=== PATIENT | male | born 1950 | race Caucasian/White ===

== ENCOUNTER → 2018-06-21 08:57 | Outpatient (CLI) | payer MEDICARE, OTHER | END | disposition home or self-care (01) | LOC: D.HCCARDIO 08:57 | DX: R55 Syncope and collapse (principal) ==

== ENCOUNTER 2018-07-04 06:01 | Outpatient (CLI) | payer MEDICARE, OTHER ==
[~2018-07-04] VITALS: Ht 172.7 cm; Wt 87.3 kg
--- NOTE | ~2018-07-04 | HEMODYNAMI ---
PATIENT:PARRISH SELBY MEDICAL RECORD: [id number] : 48 LOCATION:[facility] ADMISSION DATE: 07/04/18 Generatedon:07/04/20187:46 Patient name: PARRISH SELBY Patient #: [id number] SSN: : 1950 Date of study: 07/04/2018 Page: Of Hemodynamic Procedure Report Patient Data Patient Demographics First Name: PARRISH Gender: Male Last Name: BAL : 1950 Middle Initial: A Age: 68 year(s) Patient #: [id number] Race: Unknown Additional ID: [id number] Contact details Address: [address] [place] [address] State: [place] City: [place] Zip code: [address] Past Medical History Allergies: No known allergies Admission Admission Data Admission Date: 07/04/2018 Admission Time: 6:01 Procedure Procedure Types Cath Procedure Diagnostic Procedure LHC LHC w/Coronaries Procedure Description Procedure Date Procedure Date: 07/04/2018 Procedure Start Time: 7:32 Procedure End Time: 7:46 Procedure Staff Name Function Maninder Petty MD Performing Physician Laure Baig RT Monitor Sofie Young RN Nurse Denzel Gabriel RT Scrub Procedure Data Cath Procedure Fluoroscopy Diagnostic fluoroscopy Total fluoroscopy Time: 2.9 time: 2.9 min min Diagnostic fluoroscopy Total fluoroscopy dose: 846 dose: 846 mGy mGy Contrast Material Contrast Material Type Amount (ml) Isovue 300 63 Entry Location Entry Primary Successful Side Size Upsize Upsize Entry Closure Franco ccessful Closure Location (Fr) 1 (Fr) 2 (Fr) Remarks Device Remarks Radial Right 6 Fr Mechanical artery Short Compression Estimated blood loss: 5 ml Diagnostic catheters Device Type Used For End Catheter Placement DIAGNOSTIC Husam 110cm LV Angiography 5Fr catheter ([id number]) DIAGNOSTIC AR1 MOD 5Fr Right Coronary catheter ([id number]) Angiography Procedure Complications No complications Procedure Medications Medication Administration Route Dosage 0.9% NaCl I.V. 100 ml/hr Oxygen etCO2 Nasal cannula 2 l/min Lidocaine 2% added to field 20 Heparin Flush Bag added to field 2 bags (1000units/500ml NS) Radial Cocktail added to field 1 syringe (Verapomil 2mg/Nitro 400mcg/Heparin 1500units) Versed I.V. 2 mg Fentanyl I.V. 50 mcg Versed I.V. 1 mg Fentanyl I.V. 25 mcg Versed I.V. 2 mg Fentanyl I.V. 25 mcg Hemodynamics Rest Heart Rate: 75 (bpm) Pressure Samples Time Site Value (mmHg) Purpose Heart Use Rate(bpm) 7:35 LV 135/-3,15 EDP 74 7:35 AO 124/54(83) Pullback 77 7:35 LV 123/-8,10 Pullback 77 Gradients Valve Time Site 1 Site 2 Mean SEP/DFP Peak To Heart Use (mmHg) (sec/min) Peak Rate (mmHg) (bpm) Aortic 7:35 LV AO 0 6 0 77 123/-8,10 124/54(83) Calculations Valve P-P Mean Valve Index Valve Source Name Gradient Area Flow (cm2) Aortic 0 0 0 0 Snapshots Pre Cath Intra NCS Post Cath Vital Signs Time Heart Resp SPO2 etCO2 NIBP (mmHg) Rhythm Pain Sedation Rate (ipm) (%) (mmHg) Status Level (bpm) 7:18:02 73 13 98 31.2 162/96(138) NSR 0 (11) 10(A) , No pain 7:22:30 75 12 100 35 158/92(141) NSR 0 (11) 10(A) , No pain 7:26:53 72 12 96 20.1 137/88(115) NSR 0 (11) 10(A) , No pain 7:31:13 74 13 97 34.2 132/81(115) NSR 0 (11) 10(A) , No pain 7:35:22 77 13 96 38 95/67(89) NSR 0 (11) 10(A) , No pain 7:39:32 76 12 97 39.5 113/69(96) NSR 0 (11) 9(A) , No pain 7:43:50 78 14 96 42.5 119/69(103) NSR 0 (11) 10(A) , No pain Medications Time Medication Route Dose Verified Delivered Reason Notes Ef fectiveness by by 7:21:35 0.9% NaCl I.V. 100 Maninder Sofie used for ml/hr Jovanny Young labels molder 7:21:43 Oxygen etCO2 2 l/min Maninder Osfie used for Nasal Jovanny Young procedure cannula RN 7:21:49 Lidocaine 2% added 20ml Maninder Maninder for local to vial Jovanny Petty MD anesthetic field 7:21:56 Heparin Flush added 2 bags Maninder Maninder used for Bag to Jovanny Petty MD procedure (1000units/500ml field NS) 7:22:02 Radial Cocktail added 1 Maninder Maninder used for (Verapomil to syringe Jovanny Petty MD procedure 2mg/Nitro field 400mcg/Heparin 1500units) 7:29:00 Versed I.V. 2 mg Maninder Sofie for Jovanny Young sedation RN 7:29:06 Fentanyl I.V. 50 mcg Maninder Sofie for Jovanny Young sedation RN 7:37:09 Versed I.V. 1 mg Maninder Sofie for Jovanny Young sedation RN 7:37:13 Fentanyl I.V. 25 mcg Maninder Sofie for Jovanny Young sedation RN 7:42:16 Versed I.V. 2 mg Maninder Sofie for Jovanny Young sedation RN 7:42:20 Fentanyl I.V. 25 mcg Maninder Sofie for Jovanny Young sedation knot picker cloth Log Time Note 6:56:35 Time tracking: Regular hours (M-F 7:00 - 5:00) 6:56:39 Plan of Care:Hemodynamics will remain stable., Cardiac rhythm will remain stable., Comfort level will be maintained., Respiratory function will remain adequate., Patient/ family verbilizes understanding of procedure., Procedure tolerated without complication., Recovers from procedure without complications.. 7:08:21 Sofie Young RN sent for patient. Start room use. 7:09:42 Patient received from Pre/Post Procedure Room to CCL 1 Alert and oriented. Tansferred to table in Supine position. 7:09:43 Warm blankets applied, and nicholas hugger turned on for patient comfort. 7:09:44 Correct patient and procedure confirmed by team. 7:09:45 ECG and BP/O2 sat monitors applied to patient. 7:09:46 Full Disclosure recording started 7:16:39 Vital chart was started 7:21:35 0.9% NaCl 100 ml/hr I.V. was administered by Sofie Young RN; used for procedure; 7:21:43 Oxygen 2 l/min etCO2 Nasal cannula was administered by Sofie Young RN; used for procedure; 7:21:49 Lidocaine 2% 20ml vial added to field was administered by Maninder Petty MD; for local anesthetic; 7:21:56 Heparin Flush Bag (1000units/500ml NS) 2 bags added to field was administered by Maninder Petty MD; used for procedure; 7:22:02 Radial Cocktail (Verapomil 2mg/Nitro 400mcg/Heparin 1500units) 1 syringe added to field was administered by Maninder Petty MD; used for procedure; 7:22:45 Baseline sample Acquired. 7:22:48 Rhythm: sinus rhythm 7:22:55 H&P Date Dictated: 07/04/2018 New H&P dictated by physician.. 7:22:56 Pre-procedure instructions explained to patient. 7:22:56 Pre-op teaching completed and patient verbalized understanding. 7:22:58 Family in waiting room. 7:23:00 Patient NPO since Midnight. 7:23:09 Patient allergic to No known allergies 7:23:11 Is the patient allergic to Iodine/contrast media? No. 7:23:13 Is patient on blood thinner?No 7:23:14 Patient diabetic? Yes. 7:23:15 If diabetic: On Metformin? Yes 7:23:18 If on Metformin: Last Dose? 07/02/2018 7:23:23 Previous problem with sedation/anesthesia? No ? 7:23:24 Snore? Yes 7:23:25 Sleep apnea? No 7:23:26 Deviated septum? No 7:23:27 Opens mouth fully? Yes 7:23:27 Sticks out tongue? Yes 7:23:30 Airway obstruction? No ? 7:23:31 Dentures? No ? 7:23:35 Pre procedure: right dorsailis pedis pulse 2+ Normal; easily identifiable; not easily obliterated 7:23:37 Modified Michael's test Ulnar < 7 seconds 7:23:40 Patient pain scale 0/10 ?. 7:23:43 IV patent on arrival in left forearm with 0.9% NaCl at [facility]. 7:23:46 Lab results completed and on chart. 7:23:50 Right Radial & Right Groin area was prepped with chlora-prep and draped in sterile fashion 7:23:50 Alarms reviewed by R. N. 7:23:51 Sharps counted by scrub and verified by R.N. 7:23:53 Use device set Radial Dx or PCI 7:23:54 ACIST Syringe (10284) opened to sterile field. 7:23:54 Medline Cath Pack ([id number]) opened to sterile field. 7:23:55 Bag Decanter (2002S) opened to sterile field. 7:23:55 DIAGNOSTIC WIRE .035 260cm J wire (217783) opened to sterile field. 7:23:55 ACIST Hand Control (77784) opened to sterile field. 7:23:56 ACIST Manifold (54887) opened to sterile field. 7:23:58 MBrace Wrist Support ([id number]) opened to sterile field. 7:23:58 SHEATH 6FR Slender (80-7590) opened to sterile field. 7:24:01 NEEDLE Cook 21G 4cm Radial ([id number]) opened to sterile field. 7:26:01 Final Timeout: patient, procedure, and site verified with staff and physician. All members of the team are in agreement. 7:26:04 Right Radial site verified by team. 7:26:06 Physical assessment completed. ASA score P 2 - A patient with mild systemic disease as per Maninder Petty MD. 7:26:09 Sedation plan: IV Moderate Sedation Medication:Versed, Fentanyl 7:27:20 Zero performed for pressure channel P1 7:29:00 Versed 2 mg I.V. was administered by Sofie Young RN; for sedation; 7:29:06 Fentanyl 50 mcg I.V. was administered by Sofie Young RN; for sedation; 7:30:39 Zero performed for pressure channel P1 7:32:23 Procedure started. 7:32:28 Local anesthetic to right radial artery with Lidocaine 2% by Maninder Petty MD.INITIAL ACCESS ONLY 7:33:33 A 6 Fr Short sheath was inserted into the Right Radial artery 7:34:31 A DIAGNOSTIC Husam 110cm 5Fr catheter ([id number]) was advanced over the wire and used for LV Angiography. 7:35:14 LV gram done using ODOM 7:35:18 Injector settings: Ml/sec: 5, Volume: 15, 7:35:25 EF : 55 % 7:35:26 LV hemodynamics recorded. 7:37:09 Versed 1 mg I.V. was administered by Sofie Young RN; for sedation; 7:37:13 Fentanyl 25 mcg I.V. was administered by Sofie Young RN; for sedation; 7:40:07 Catheter removed. 7:40:29 A DIAGNOSTIC AR1 MOD 5Fr catheter ([id number]) was advanced over the wire and used for Right Coronary Angiography. 7:42:10 Catheter removed. 7:42:16 Versed 2 mg I.V. was administered by Sofie Young RN; for sedation; 7:42:20 Fentanyl 25 mcg I.V. was administered by Sofie Young RN; for sedation; 7:42:44 Sheath removed intact; hemostasis achieved with Mechanical Compression to the Right Radial artery. 7:42:46 Procedure ended.(Physican Out) 7:43:15 Fluoroscopy time 02.90 minutes. 7:43:18 Fluoroscopy dose: 846 mGy 7:43:18 Flurop Dose total: 846 7:43:22 Contrast amount:Isovue 300 63ml. 7:43:25 Sharps counted by scrub and verified by R.N. 7:43:27 TR band inflated with 12cc of air. 7:43:28 Insertion/operative site no bleeding no hematoma. 7:43:37 Post right radial artery:stable, clean and dry 7:43:39 Post Procedure Pulses reassessed and unchanged 7:43:42 Post-procedure physical assessment completed. ASA score P 2 - A patient with mild systemic disease as per Maninder Petty MD. 7:43:44 Post procedure rhythm: unchanged. 7:43:47 Estimated blood loss: 5 ml 7:43:48 Post procedure instruction explained to patient.Patient verbalizes understanding. 7:43:49 Patient needs reinforcement of post procedure teaching. 7:44:33 Procedure Complication : No complications 7:45:19 See physician's report for complete and final results. 7:45:31 TR BAND Standard ([id number]) opened to sterile field. 7:45:50 Procedure and supply charges have been captured, reviewed, submitted and are correct. 7:46:23 Vital chart was stopped 7:46:25 Report given to Pre/Post Procedure Room. 7:46:28 Patient transfered to Pre/Post Procedure Room with Stretcher. 7:46:35 Procedure ended. 7:46:35 Full Disclosure recording stopped 7:46:40 End room use (Document Last) Device Usage Item Name Manufacture Quantity Catalog Hospital Part Current Minimal Lot# / Number Charge Number Stock Stock Serial# Code ACIST Acist 1 32358 414975 136583 794540 20 Syringe Medical (97456) Systems Inc Medline Medline 1 [id number] 806179 31051 854966 5 Cath Pack ([id number]) Bag Microtek 1 2001S 636356 67034 891415 5 Decanter Medical Inc. () DIAGNOSTIC St Kaden 1 775383 029482 174049 764063 30 WIRE .035 260cm J wire (338277) ACIST Hand Acist 1 99790 057679 570125 743323 5 Control Medical (37389) Systems Inc ACIST Acist 1 68236 292889 709698 712071 5 Manifold Medical (19109) Systems Inc MBrace Advanced 1 140-0250-00 841981 40870 612928 5 Wrist Vascular Support Dynamics ([id number]) SHEATH 6FR Terumo 1 [id number] 812660 697274 144201 5 Slender (80-1060) NEEDLE Cook [employer]brook Medical 1 [id number] 330714 536855 592405 5 21G 4cm Radial (T33488) DIAGNOSTIC Terumo 1 40-5023 519257 979312 437753 5 Husam 110cm 5Fr catheter (023700) DIAGNOSTIC Cardinal 1 [id number] 271790 372563 772102 15 AR1 MOD 5Fr Health catheter (500241U) TR BAND Terumo 1 [id number] 672739 441237 220456 40 Standard ([id number]) Signature Audit Boaz Stage Time Signature Unsigned Intra-Procedure 07/04/2018 Laure 7:46:51 AM Counts RT(R) Signatures Monitor : Laure Signature : Counts RT Date : Time : [facility] [address] [place] [address]
[2018-07-04] MEDS ORDERED: BYDUREON P2 MG/0.65 SC (06:30)
[2018-07-04] MEDS ORDERED: LISINOPRIL10 MG PO (06:31)
[2018-07-04] MEDS ORDERED: LOVASTATIN40 MG PO (06:31)
[2018-07-04] MEDS ORDERED: PEPCID AC20 MG PO (06:31)
[2018-07-04] MEDS ORDERED: GLUCOPHAGE850 MG PO (06:32)
[2018-07-04] MEDS ORDERED: LOPRESSOR25 MG PO (06:32)
[2018-07-04] MEDS ORDERED: TRAZODONE HCL100 MG PO (06:32)
[2018-07-04] MEDS ORDERED: GLUCOTROL XL 5 M5 MG PO (06:32)
[2018-07-04 06:47] VITALS: BP 158/91; Ht 172.7 cm; Wt 87.3 kg
[2018-07-04 07:06] LABS: CALC OSMOLALITY 288 mosm/kg (275-300); CARBON DIOXIDE 29.2 mmol/L (21.0-32.0); CHLORIDE - SERUM 105 mmol/L (98-107); GLUCOSE 227 mg/dL (74-106); POTASSIUM - SERUM 4.7 mmol/L (3.5-5.1); SODIUM 141 mmol/L (136-145); UREA NITROGEN 14 mg/dL (7-18); eGFR NON AFRICAN AMERICAN 79 mL/min (90-120)
[2018-07-04 07:39] LABS: BASOPHILS 0.5 % (0-2); EOSINOPHILS 2.3 % (0-7); HEMATOCRIT 39.4 % (42.0-54.0); HEMOGLOBIN 12.9 g/dL (13.5-17.5); IMMATURE GRANULOCYTES 0.3 % (0-5); MCH 27.2 pg (26.0-34.0); MCHC 32.7 g/dL (31.0-37.0); MCV 82.9 fL (80.0-100.0); MEAN PLATELET VOLUME 9.5 fL (7.4-10.4); MONOCYTES 12.2 % (2-11); NEUTROPHILS 61.7 % (40-80); PLATELET COUNT 265 10x3/uL (130-400); RBC 4.75 10x6/uL (4.20-6.10); RDW 14.9 % (11.5-14.5); WBC 6.5 10x3/uL (4.8-10.8)
== END 2018-07-04 10:35 | disposition home or self-care (01) ==
LOC: D.CATH 06:01
PROVIDERS: Internal Medicine Cardiovascular Disease
DX: I25.10 Atherosclerotic heart disease of native coronary artery without angina pectoris (principal); I10 Essential (primary) hypertension; E78.5 Hyperlipidemia, unspecified; E11.9 Type 2 diabetes mellitus without complications; K21.9 Gastro-esophageal reflux disease without esophagitis; Z79.84 Long term (current) use of oral hypoglycemic drugs; Z79.899 Other long term (current) drug therapy; Z01.812 Encounter for preprocedural laboratory examination

== ENCOUNTER 2018-07-26 09:30 | Inpatient (IN) | payer MEDICARE, OTHER ==
[~2018-07-26] VITALS: Ht 172.7 cm; Wt 91.6 kg
[~2018-07-26 09:30] MED LIST: BYDUREON P2 MG/0.65 SC; GLUCOPHAGE850 MG PO; GLUCOTROL XL 5 M5 MG PO; LISINOPRIL10 MG PO; LOPRESSOR25 MG PO; LOVASTATIN40 MG PO; PEPCID AC20 MG PO; TRAZODONE HCL100 MG PO
[2018-07-26 10:41] LABS: APTT 34.7 SECONDS (22.8-39.4); INR 0.97 (0.85-1.17); PROTIME 12.4 SECONDS (11.6-15.0)
[2018-07-26 10:43] LABS: APPEARANCE HAZY (CLEAR); BILIRUBIN NEGATIVE (NEGATIVE); COLOR YELLOW (YELLOW); GLUCOSE 1000 mg/dL (NEGATIVE); KETONE SMALL mg/dL (NEGATIVE); NITRITE NEGATIVE (NEGATIVE); PROTEIN NEGATIVE (NEGATIVE); SPECIFIC GRAVITY 1.015 (1.005-1.020); UROBILINOGEN NORMAL (NORMAL)
[2018-07-26 10:56] LABS: ALBUMIN 3.6 g/dL (3.4-5.0); ALKALINE PHOSPHATASE 61 U/L (46-116); ALT (SGPT) 32 U/L (10-68); BILIRUBIN - TOTAL 0.31 mg/dL (0.2-1.3); CALC OSMOLALITY 284 mosm/kg (275-300); CALCIUM 8.7 mg/dL (8.5-10.1); CARBON DIOXIDE 30.5 mmol/L (21.0-32.0); CHLORIDE - SERUM 103 mmol/L (98-107); CHOLESTEROL, TOTAL 130 mg/dL (0-200); GLUCOSE 204 mg/dL (74-106); PHOSPHOROUS 3.2 mg/dL (2.5-4.9); POTASSIUM - SERUM 4.6 mmol/L (3.5-5.1); PROTEIN - SERUM 7.4 g/dL (6.4-8.2); SODIUM 140 mmol/L (136-145); T4 THYROXIN - FREE 0.94 ng/dL (0.76-1.46); THYROID STIMULATING HORMONE 0.96 uIU/mL (0.36-3.74); UREA NITROGEN 13 mg/dL (7-18); URIC ACID 3.3 mg/dL (2.6-7.2); eGFR NON AFRICAN AMERICAN 79 mL/min (90-120)
[2018-07-26 10:59] LABS: BASOPHILS 0.4 % (0-2); HEMATOCRIT 40.8 % (42.0-54.0); HEMOGLOBIN 13.3 g/dL (13.5-17.5); IMMATURE GRANULOCYTES 0.1 % (0-5); LYMPHOCYTES 24.8 % (15-50); MCH 27.1 pg (26.0-34.0); MCHC 32.6 g/dL (31.0-37.0); MCV 83.1 fL (80.0-100.0); MEAN PLATELET VOLUME 9.6 fL (7.4-10.4); MONOCYTES 8.5 % (2-11); NEUTROPHILS 64.2 % (40-80); PLATELET COUNT 270 10x3/uL (130-400); RBC 4.91 10x6/uL (4.20-6.10); RDW 15.3 % (11.5-14.5); WBC 8.2 10x3/uL (4.8-10.8)
[2018-07-30] VITALS (48 sets, daily range): BP systolic 94–163; BP diastolic 41–85; BMI 29.2; BMI 32.3
--- NOTE | 2018-07-30 13:35 | NUR ---
PT ARRIVED IN THE UNIT. PT SEDATED AND ON THE VENTILATOR. SIZE 8.0 ETT 24 AT THE LIP. SEE VENT SETTIGS IN RT FLOW SHEET. CVL NOTED TO RIGHT JUGULAR. SEE IV FLOW SHEET FOR GTTS. R RADIAL JOYCELYN NOTED. WRIST GAURD ON. CAP REFILL <3 SECONDS. GOOD WAVE FORM. IV NOTED TO LEFT WRIST SL. MIDSTERNAL DRESSING C/D/I. SUBSTERNAL DRESSING C/D/I. CT X2 LABLED A AND P NOTED BOTH CONNECTED TO 20 CM OF SUCTION. NO AIR LEAK NOTED. L SABRINA DRAIN NOTED. COMPRESSED. SUBSTERNAL DRAINS NOTED TO HAVE BLOODY DRAINGE. SUBSTERNAL TPM WIRES COILED. FC NOTED WITH CLEAR YELLOW URINE. RIGHT LEFT HARVEST SITE NOTED. KOBAN FROM THIGH TO ANKLE. LUKASZ DRAIN NOTED MID LEG COMPRESSED WITH SCANT AMOUNT OF BLOODY DRAINGE. PT EYES ARE CLOSED BUT RESPONDING TO YES AND NO QUESTIONS WHENEVER ASKED QUESTION. PT NSR. VSS AT THIS TIME. CALL LIGHT IN REACH. WILL CONT POC.
--- NOTE | 2018-07-30 14:20 | NUR ---
NITRO STARTED FOR HTN. TITRATED FOR EFFECT. SEE IV FLOW SHEET.
--- NOTE | 2018-07-30 14:30 | NUR ---
PT FOLLOWING COMMANDS AND ALERT. RT CHANGED VENT TO SIMV. PT BREATHING OVER THE VENT. VSS AT THIS TIME. WILL MONITOR.
--- NOTE | 2018-07-30 15:52 | NUR ---
RT CHANGED VENT TO CPAP MODE AND COLLECTED AN ABG. K AND HCO3 TREATED PER ORDERS. VSS REMAINS NSR.
--- NOTE | 2018-07-30 16:50 | NUR ---
ABG'S OBTAINED PER RT. K AND HCO3 TREATED PER ORDERS VSS. PT AWAKE AND FOLLOWING COMMANDS. WILL CONT POC.
--- NOTE | 2018-07-30 17:05 | NUR ---
DR PETTY CALLED AND UPDATED ON THE PT'S CONDITION AND ABG RESULTS. OK TO EXTUBATE.
--- NOTE | 2018-07-30 17:07 | NUR ---
PT EXTUBATED PER RT. PT PLACED ON 4L VIA NC. VSS. REMAINS IN NSR. PT INSTUCTD TO USE IS. PT PULLS 1000. VSS.
--- NOTE | 2018-07-30 17:25 | NUR ---
NITRO MAXED. CLEVIPREX INITIATED FOR HTN. SEE FLOW SHEET.
--- NOTE | 2018-07-30 18:49 | NUR ---
PT TOLERATING ICE CHIPS AND THIN LIQUIDS WITH NO S/SX OF DYSPAGIA. PT C/O INSITIONAL PAIN. PRN MORPHINE GIVEN. SEE MAR.
--- NOTE | 2018-07-30 19:00 | NUR ---
PT AOX4, PUPILS 3MM, REACTIVE AND EQUAL. MOVES EXTREMITIES X4 AGAINST GRAVITY, EQUAL DIGITAL MARKETING SPECIALIST. RESPIRATIONS UNLABORED, SPO2 98, 4L O2 VIA NC. LUNG SOUNDS CLEAR/DIMINISHED. S1S2 HEARD, PERIPHERAL PULSES PRESENT. TACHYCARDIC ON MONITOR, RATE 103. BOWEL SOUNDS HYPOACITVE X4, ABD NON TENDER. PRO CATH INTACT WITH LALY URINE TO BEDSIDE DRAINAGE. SUBSTERNAL CT X2 INTACT, TO 20CM SXN, NO AIR LEAK. LT SUBSTERNAL SABRINA DRAIN CDI, COMPRESSED, BLOODY DRAINAGE PRESENT. RT LEG WITH DRSGS CDI, LUKASZ X1 INTACT AND COMPRESSED WITH SCANT BLOODY DRAINAGE PRESENT. PT REPOSITIONED FOR COMFORT, PROMINENCES BRIDGED. RT RADIAL JOYCELYN ZEROED WITH GOOD WAVEFORM, NITRO/CLEVIPREX INFUSING TO MAINTAIN BP WITHIN GIVEN PARAMETERS, SEE MAR. VSS, C/O PAIN 01/29, INCISIONAL. PAIN MANAGEMENT TEACHING COMPLETED AT THIS TIME, PT VERBALIZES UNDERSTANDING. CALL LIGHT WITHIN REACH, ROOM VISIBLE FROM NURSE STATION. CPOC.
--- NOTE | 2018-07-30 19:30 | NUR ---
PRN PAIN MEDICATION PROVIDED, PT RATES PAIN 01/29. PT REPOSITIONED FOR COMFORT, PROMINENCES BRIDGED. FRESH WATER TO BEDSIDE. DENIES FURTHER NEEDS AT THIS TIME. CPOC.
--- NOTE | 2018-07-30 20:00 | NUR ---
AT BEDSIDE, UPDATE PROVIDED AND ALL QUESTIONS ANSWERED. MEDICATION TEACHING PROVIDED TO PT/. VERBALIZES UNDERSTANDING. DENIES NEEDS AT THIS TIME. VSS, CPOC.
--- NOTE | 2018-07-30 20:22 | NUR ---
SUDDEN ONSET OF NAUSEA, CLEAR EMESIS X1. ORAL CARE PROVIDED AND PRN ZOFRAN ADMINISTERED PER ORDER. VSS, PT REPOSITIONED FOR COMOFORT. CPOC.
--- NOTE | 2018-07-30 22:00 | NUR ---
PT REPOSITIONED WITH PARTIAL LINEN CHANGE, PROMINENCES BRIDGED. COUGH/DB/IS COMPLETED WITH GOOD EFFORT. REACHING 1000 ON I/S. VSS, CPOC.
--- NOTE | 2018-07-30 23:00 | NUR ---
REASSESSMENT COMPLETE, NO NEW CHANGES AT THIS TIME. COUGH/DB/IS WITH GOOD EFFORT, REACHING 1000 ON I/S. VSS, CPOC.
--- NOTE | 2018-07-30 23:20 | NUR ---
PT C/O PAIN 01/29, PRN PAIN MEDICATION PROVIDED PER ORDER. PT REPOSITIONED WITH PROMINENCES BRIDGED. VSS, CPOC.
[2018-07-31] VITALS (61 sets, daily range): BP systolic 94–147; BP diastolic 41–474; Ht 172.7 cm; Wt 91.6 kg
--- NOTE | 2018-07-31 01:00 | NUR ---
PT RESTING QUIETLY AT THIS TIME, VSS. PT REPOSITIONED FOR COMFORT. COUGH/DB/IS WITH GOOD EFFORT, REACHING 1000 ON I/S. ORAL CARE PROVIDED, MINIMAL ASSISTANCE. DENIES NEEDS AT THIS TIME. CPOC.
--- NOTE | 2018-07-31 02:00 | NUR ---
DANGLED PT AT BEDSIDE, VSS, TOLERATED WELL. COUGH/DB WITH GOOD EFFORT.
--- NOTE | 2018-07-31 03:25 | NUR ---
BS AT 0309 WAS 137, PER ORDER INSULIN GTT WAS TURNED OFF FOR 15 MIN AND RECHECKED, 157. GTT RESTARTED AT HALF THE PREVIOUS RATE, SEE FLOWSHEET.
--- NOTE | 2018-07-31 03:49 | NUR ---
REASSESSMENT COMPLETE, NO NEW CHANGES AT THIS TIME. PT AOX4. UNLABORED RESPIRATIONS. COUGH/DB WITH GOOD EFFORT. REACHING 1000 ON I/S. PT REPOSITIONED FOR COMFORT, PROMINENCES BRIDGED. VSS, DENIES NEEDS. CPOC.
--- NOTE | 2018-07-31 06:00 | NUR ---
UP TO CHAIR WITH PARTIAL ASSISTANCE. TOLERATES WELL, VSS. COMPLETE LINEN CHANGE PROVIDED. COUGH/DB WITH GOOD EFFORT. REACHING 1000 ON I/S. DENIES FURTHER NEEDS AT THIS TIME. CPOC.
[2018-07-31 06:24] LABS: HEMATOCRIT 32.9 % (42.0-54.0); HEMOGLOBIN 10.8 g/dL (13.5-17.5); MCH 27.1 pg (26.0-34.0); MCHC 32.8 g/dL (31.0-37.0); MCV 82.5 fL (80.0-100.0); MEAN PLATELET VOLUME 9.7 fL (7.4-10.4); RBC 3.99 10x6/uL (4.20-6.10); RDW 15.7 % (11.5-14.5); WBC 18.9 10x3/uL (4.8-10.8)
[2018-07-31 06:35] LABS: ALBUMIN 2.9 g/dL (3.4-5.0); ANION GAP 15.4 mmol/L (8-16); BILIRUBIN - TOTAL 0.54 mg/dL (0.2-1.3); CALCIUM 7.1 mg/dL (8.5-10.1); CARBON DIOXIDE 24.2 mmol/L (21.0-32.0); CREATININE - SERUM 1.1 mg/dL (0.6-1.3); POTASSIUM - SERUM 3.6 mmol/L (3.5-5.1); PROTEIN - SERUM 5.6 g/dL (6.4-8.2)
--- NOTE | 2018-07-31 09:02 | NUR ---
0700 PT RECIEVED UP IN CHAIR ALERT AN DORIENTED O2 4L NC R IJ CVL DRESSING CDI, SEE IV FLOWSHEET, MIDSTERNAL AND SUBSTERNAL INCISIONS CDI WITH SUBSTERNAL CTX2 TO SUCTION, SABRINA DRAIN COMPRESSED, TPM WIRE COILED TO CHEST, R RADIAL A LINE ZEROED, WRIST PROTECTOR IN PLACE, PRO DRAINING YELLOW URINE, RLE HARVEST SITES CDI WITH LUKASZ COMPRESSED, WILL CONTINUE TO MONITOR 0800 O2 DECREASED TO 2L NC 0900 AM MEDS GIVEN, SMALL AMOUNT OF CLEAR EMESIS, NO NAUSEA, DR PETTY AWARE
--- NOTE | 2018-07-31 11:54 | NUR ---
1000 A LINE REMOVED PER PROTOCOL TIP INTACT NO SIGNS OF BLEEDING, PRO REMOVED TIP INTACT, LEG LUKASZ REMOVED, DRESSING APPLIED 1200 DENIES ALL NEEDS, TOELRATING WATER AND ICE CHIPS WITH NO NAUSEA
--- NOTE | 2018-07-31 13:24 | HP ---
PATIENT: PARRISH SELBY MEDICAL RECORD: [id number] ACCOUNT: [id number] LOCATION:[facility] : [birth year] ADMISSION DATE: 07/30/18 PCP: EFRAIN PETTY MD HISTORY AND PHYSICAL EXAMINATION PARRISH Pablo (68yo, M) ID# [id number]. Date/Time07/09/2018 03:54FNCDU1949Service Dept.[facility]PP[facility] ClinicProviderDANIKM PETTY MDInsuranceMed Primary: [place] Insurance # : [id number] Referring Provider Name : JOHAN AYALA Employer Name : UNKNOWN Med Secondary: [employer] [place] Insurance # : [id number] Policy/Group # : [id number] Employer Name : UNKNOWN Prescription: CMX - Member is eligible. Chief Complaint Coronary artery disease Patient's Care Team Referring Provider (): JOHAN AYALA: [address] [place] [phone], , Patient's Pharmacies [facility] ([facility]): [address] [place] [phone], , Vitals BP:152/70 sitting L arm 07/09/2018 04:19 pm 158/76 sitting R arm 07/09/2018 04:20 pmBP Cuff Size:adult 07/09/2018 04:19 pm adult 07/09/2018 04:20 pmHR:80,reg 07/09/2018 04:20 pmHt:5 ft 8 in 07/09/2018 04:20 pmWt:192 lbs 07/09/2018 04:20 pmNotes:had cardiology workup for near syncopal ywqkamr9307/09/2018 04:21 pmBMI:29.2 07/09/2018 04:20 pmAllergies Reviewed Allergies NKDAMedications Reviewed Medications Bydureon BCise 2 mg/0.85 mL subcutaneous auto-rxffiqvs28/03/18 filledCaremarkfamotidine 20 mg gchera62/04/18 filledCaremarkglipiZIDE ER 5 mg tablet, extended release 24 hr04/25/18 filledCaremarklisinopril 10 mg ujazyx00/04/18 filledCaremarklovastatin 40 mg /04/18 filledCaremarkmetFORMIN 850 mg skjpap73/04/18 filledCaremarkmetoprolol tartrate 25 mg daemtn61/04/18 filledCaremarktraZODone 100 mg txysci23/04/18 filledCaremarkProblems Reviewed Problems Coronary arteriosclerosis - Onset: 07/05/2018 Family History Reviewed Family History Father- InfluenzaMother- Acute lymphoid leukemiaUnspecified Relation- Myocardial infarction - grandfatherparent, grandparent and sibling with CADSocial History Reviewed Social History Cardiology Family history of heart disease?: Y Smoking Status: Never smoker High Cholesterol: Y High blood pressure: Y Overweight: Y HISTORY AND PHYSICAL [id number] PARRISH SELBY Obese: Y Diabetes: Y Alcohol intake: None Diet: Diabetic Surgical History Reviewed Surgical History Tonsillectomy ORIF L ulna/radius Past Medical History Reviewed Past Medical History Diabetes: Y Hyperlipidemia: Y Hypertension: Y Documents for Discussion N/A Screening None recorded. HPI Coronary Artery Disease F/U Reported by patient. Severity: no chest discomfort with daily activities Context: non-smoker Associated Symptoms: no chest pain; no left arm pain; no dyspnea with exertion; no sweating; no nausea; no stress; neck pain with exertion ('when I am up and about, or in bed') referral for multivessel coronary disease Patient reports he had a syncopal episode, workup included stress test, positive for ischemia, and cardiac catheterization with LAD occlusion and three-vesse l coronary artery disease with preserved left ventricular function. Patient currently denies any angina dyspnea syncope or near syncope, palpitations, nausea and vomiting ROS Additionally reports: as reviewed in the chart with the patient family history of abdominal aortic aneurysm, patient reports previous negative screening ultrasound ROS as noted in the HPI Physical Exam Patient is a 68-year-old male. Constitutional: General Appearance well nourished and developed and healthy-appearing. Level of Distress NAD. Ambulation ambulating normally. Cardiovascular: Apical Impulse not displaced or no thrill. Heart Auscultation no murmurs, rubs, or gallops and RRR. Arterial Pulses dorsalis pedis 2+ bilateral; 2+ bilateral radial. Edema no edema or varicosities. Lungs: Repiratory Effort no dyspnea. Percussion no hyperresonance or dullness or flatness. Auscultation no wheezing, rhonchi, or rales / crackles and breathing sounds normal and good air movement. Abdomen: Bowl Sounds normal. Inspection and Palpation no tenderness, guarding, or masses and soft and non-distended. Liver non-tender and no hepatomegaly. Spleen non-tender and no splenomegaly. HISTORY AND PHYSICAL [id number] PARRISH SELBY Ears, Nose, Throat: Hearing grossly normal hearing. Oropharynx: moist mucous membranes. Musculoskeletal System: Gait And Stance normal gait and stance. Digits and Nails normal nails and no cyanosis. Joints, Bones, and Muscles normal strength and movement of all extremities. Neurologic: Cranial Nerves grossly intact. Reflexes DTRs 2+ bilaterally throughout. Sensation grossly intact. Lymph Nodes: Lymph Nodes no cervical LAD, supraclavicular LAD, axillary LAD, or inguinal LAD. Eyes: Lids and Conjunctivae no discharge or pallor and non-injected. Pupils PERRLA. EOM EOMI. Sclerae non-icteric. Neck: Neck no masses, enlarged lymph nodes, or carotid bruits and supple and trachea midline. Thyroid no enlargement or nodules and non-tender. Skin: Inspection and Palpation no rash, lesions, ulcers, or jaundice. Assessment / Plan 1. Cor onary arteriosclerosis I25.10: Atherosclerotic heart disease of ute coronary artery without angina pectoris Patient Instructions limits stressful activities over the holidays Discussion Notes we discussed the rationale for coronary artery bypass graft, the alternatives, the benefits, and the risks. He understands risks and gives consent. Return to Office Efrain PETYT MD for Surgery at [facility] SCHEDULE on 07/29/2018 at 07:30 AM Encounter Sign-Off Encounter signed-off by Efrain PETTY MD, 07/11/2018. Encounter performed and documented by Efrain PETTY MD Encounter reviewed & signed by Efrain PETTY MD on 07/11/2018 at 9:56am EFRAIN PETTY MD at 1324 CC: [id number] DICTATION DATE: 07/09/18 1550 EPIC ANALYST: JOSELUIS 07/30/18 0914 ADM IN [place] [id number] [place] [address]
--- NOTE | 2018-07-31 16:00 | NUR ---
REPORT RECEIVED FROM JUD. PATIENT AWAKE AND ALERT UP IN CHAIR DENIES ANY BAD PAIN. HAS NOT VOIDED. CHEST TO 20 CM SUCTION SERSANG DRAINAGE. LUKASZ DRAIN SUBSTERNAL. COMPRESSED SMALL AMOUNT SERSANG DRAINAGE. MID CHEST DRESSING DRY AND INTACT. ALL DRESSING RIGHT LEG INTACT. MONITOR SR TO ST. NO DISTRESS. OXYGEN AT 2 LITERS PER NC. RIJ CENTRAL LINE INFUSING WITH INSULIN AT 1 UNIT HOUR WITH PLAMALYTE AT 10 ML HOUR. DRESSING DRY AND INTACT
--- NOTE | 2018-07-31 16:10 | NUR ---
INSULIN GTT TURNED OFF. ACCHECK 141. KENJI FIGUEROA'Luis Enrique. LINE FLUSHES WITH 20 CC NORMAL SALINE.
--- NOTE | 2018-07-31 16:17 | NUR ---
1400 PT REPOSITIONED, VSS, DENIES ALL NEEDS 1500 I&OS DONE, PT DENIES ALL PAIN, WILL CONTINUE TO MONITOR
--- NOTE | 2018-07-31 17:00 | NUR ---
CLEAR LIQUID SUPPER TRAY SERVED. ATE CHICKEN BROTH, AND FEW BITES OF JELLO. FAMILY AT BEDSIDE. UPDATE GIVEN. QUESTIONS ANSWERED. PATIENT IN NO DISTRESS
--- NOTE | 2018-07-31 17:53 | NUR ---
PATIENT RETURNED TO BED. AMBULATED FAIR. GAIT UNSTEADY. DR. PETTY HERE CHEST TUBES PULLED. WITHOUT DIFFICULTY. PATIENT TOLERATED WELL. SUBSTERNAL LUKASZ DRAIN INTACT WITH SERSANG DRAINAGE. PACER WIRES SECURE TO CHEST WALL. RIGHT LEG DRESSING WITH SOME BLOOD DRAINAGE. ALL INTACT. VOIDED SMALL AMOUNT URINE.
--- NOTE | 2018-07-31 18:30 | NUR ---
TIRED TO VOID, STOOD UP FOR 15 MIN. WATER WAS TURNED ON, POURED WARM WATER ON PATIENT. BLADDER SCAN INDICATED HE HAD GREATER THAN [address] PETTY NOTIFIED. ORDER PRO CATH. PRO CATH INSERTED IN SPONGE DIVER 300 ML IMMEDIATELY RETURNED.
--- NOTE | 2018-07-31 19:00 | NUR ---
PT AOX4, UNLABORED RESPIRATIONS, SPO2 98, 2L O2 VIA NC. LUNG SOUNDS CLEAR/DIMINISHED. S1S2 HEARD, PERIPHERAL PULSES PRESENT. BOWEL SOUNDS HYPOACTIVE IN ALL QUADRANTS. PRO CATH INTACT WITH YELLOW URINE PRESENT. LT SUBSTERNAL SABRINA INTACT AND COMPRESSED. COUGH/DB WITH GOOD EFFORT. REACHING 1000 ON I/S X10. FRESH WATER TO BEDSIDE. REPOSITIONED FOR COMFORT WITH PROMINENCES BRIDGED. CALL LIGHT WITHIN PT REACH. CPOC.
--- NOTE | 2018-07-31 23:00 | NUR ---
REASSESSMENT COMPLETE, NO NEW CHANGES AT THIS TIME. PT REPOSITIONED FOR COMFORT, PARTIAL LINEN CHANGE PROVIDED. COUGH/DB WITH GOOD EFFORT. REACHING 1000 ON I/S X10. FRESH WATER TO BEDSIDE. DENIES FURTHER NEEDS AT THIS TIME. CALL LIGHT AND BEDSIDE TABLE WITHIN PT REACH. CPOC.
--- NOTE | 2018-07-31 23:40 | NUR ---
JOVANNY NOTIFIED OF INCREASING HR AND BP, NEW ORDER REC'D, SEE MAR.
[2018-08-01] VITALS (24 sets, daily range): BP systolic 109–156; BP diastolic 63–97
--- NOTE | 2018-08-01 01:00 | NUR ---
PT AWAKE AND ALERT. REPOSTIIONED FOR COMFORT WITH MINIMAL ASSIST. TACHYCARDIC ON MONITOR, UNLABORED RESPIRATIONS. COUGH/DB WITH GOOD EFFORT. REACHING 1000 ON I/S X10. DENIES FURTHER NEEDS AT THIS TIME. CALL LIGHT WITHIN PT REACH. CPOC.
--- NOTE | 2018-08-01 03:00 | NUR ---
REASSESSMENT COMPLETE, NO NEW CHANGES AT THIS TIME. PT REPOSITIONED WITH PROMINENCES BRIDGED. COUGH/DB/IS WITH GOOD EFFORT. VSS, DENIES NEEDS. CALL LIGHT WITHIN PT REACH. CPOC.
--- NOTE | 2018-08-01 05:00 | NUR ---
UP TO CHAIR, TOLERATED WELL, VSS. COMPLETE LINEN CHANGE PROVIDED. FRESH WATER TO BEDSIDE. VSS, NO COMPLAINTS AT THIS TIME, DENIES NEEDS. CALL LIGHT WITHIN PT REACH. CPOC.
[2018-08-01 06:17] LABS: HEMATOCRIT 32.5 % (42.0-54.0); HEMOGLOBIN 10.7 g/dL (13.5-17.5); MCH 27.7 pg (26.0-34.0); MCHC 32.9 g/dL (31.0-37.0); MCV 84.2 fL (80.0-100.0); MEAN PLATELET VOLUME 9.4 fL (7.4-10.4); RBC 3.86 10x6/uL (4.20-6.10); RDW 16.1 % (11.5-14.5); WBC 16.5 10x3/uL (4.8-10.8)
[2018-08-01 06:32] LABS: CALC OSMOLALITY 278 mosm/kg (275-300); CALCIUM 7.8 mg/dL (8.5-10.1); CARBON DIOXIDE 24.9 mmol/L (21.0-32.0); CHLORIDE - SERUM 102 mmol/L (98-107); GLUCOSE 206 mg/dL (74-106); SODIUM 137 mmol/L (136-145); UREA NITROGEN 9 mg/dL (7-18)
[2018-08-01 06:35] LABS: CREATININE - SERUM 0.8 mg/dL (0.6-1.3); POTASSIUM - SERUM 4.3 mmol/L (3.5-5.1); eGFR NON AFRICAN AMERICAN > 90 mL/min (90-120)
--- NOTE | 2018-08-01 07:40 | OP ---
PATIENT NAME: PARRISH SELBY MEDICAL RECORD: [id number] :48 LOCATION:[id number] ADMISSION DATE:07/30/18 SURGEON: EFRAIN PETTY MD DATE OF OPERATION: 07/30/2018 SURGEON: Efrain Petty MD FILTROSE CRUSHER: Sanjay Moe MD PREOPERATIVE DIAGNOSIS: Coronary artery disease. POSTOPERATIVE DIAGNOSIS: Coronary artery disease. PROCEDURE PERFORMED: Coronary bypass graft times 4 (left internal mammary to LAD, reverse saphenous vein graft from aorta to first diagonal, aorta to distal branch of ramus intermedius, aorta to posterior descending artery). ANESTHESIA: General endotracheal anesthesia. ESTIMATED BLOOD LOSS: Total cardiopulmonary bypass with Cell Saver retransfusion. COMPLICATIONS: None. SPECIMENS: None. CONDITION: Stable. DISPOSITION: CV ICU. OPERATIVE FINDINGS: 1. Normal appearing heart with good contractility and no valvular stenosis or incompetence by transesophageal echocardiography. 2. Dual system greater saphenous vein in the right thigh with the smaller thin walled portion a reasonable match for the posterior descending artery. The upper 3 inches came together in the groin and this was used for the posterior descending and a small section with 3 or 4 bridging incisions from the right lower leg. 3. Severe distal disease in all vessels. 4. Left internal mammary artery was a good conduit. The LAD, which was a totally occluded vessel was a 1.5 mm vessel and a 1.5 mm probe passed to the apex easily. There was good Doppler flow after reversal of heparin. 5. First diagonal 2.0 mm and intramyocardial. 6. Ramus intermedius was completely calcified to the bifurcation point in the distal branch was the larger of the 2 branches 1.5 mm. 7. Posterior descending artery calcified throughout with a 1.5 mm vessel anastomosed between plaques. 8. Separation from cardiopulmonary bypass without difficulty. INDICATION: Coronary artery disease. PROCEDURE IN DETAIL: The patient was brought to the operating suite. General anesthesia was obtained, the patient was prepped and draped. Greater saphenous vein was harvested from the right leg with a dual system noted in the thigh. Bridging incisions were made in the thigh and lower leg. Side branches were OPERATIVE REPORT [id number] PARRISH SELBY divided with clips. Vessel ligated proximally and distally and removed from the thigh and later from the lower leg. Side branches tied or oversewn. Leg closed in 2 layers including skin clips and a drain was placed. Median sternotomy incision was made. Subcutaneous tissue was divided by electrocautery. The sternum was divided with a saw. Left hemisternum was elevated. Left pleural cavity was entered. Left internal mammary artery and veins were taken as a pedicle graft. Sternal retractor was placed. Pericardium was opened. Heparin was given. Aorta was cannulated. Dual stage venous cannula was inserted. The internal mammary was clipped distally and made ready for anastomosis. Activated clotting time was appropriately elevated. The patient was placed in cardiopulmonary bypass. Sites for distal anastomoses were selected. Retrograde cardioplegia cannula was inserted. Antegrade cardioplegic cannula was inserted. The patient was cooled. Crossclamp was placed. Cardioplegia given antegrade and retrograde and this was repeated at 15-minute intervals during the crossclamp time including down the completed vein grafts. Distal anastomoses performed in standard technique. Proximal anastomosis with single cross-clamp technique. Aortic root de-aired by removing the cross-clamp with the patient in Trendelenburg position venting the aortic root, tying the proximal anastomoses, deairing the vein graft and restoring flow. The patient was fully rewarmed, weaned after a normal rhythm was established, and proximal and distal anastomotic site had been inspected for bleeding. The patient was decannulated. The retrograde site and aortic annulus that were oversewn. Protamine were given. Graft lay appropriately. Thorough irrigation was undertaken. A drain was placed in the mediastinum with the tip in the right pleural cavity, one in the left pleural cavity. Ventricular pacing wires were placed. Pericardial fat was loosely reapproximated in the midline. Left chest was evacuated and irrigated. The internal mammary harvest site was assured to be hemostatic. Sternum was closed with wires. Fascia was closed. Subcutaneous tissue was closed. Skin was closed. Dermabond was placed. The needle and sponge counts were reported correct and the patient was taken to the ICU in stable condition. TRANSINT:[id number] Voice Confirmation ID: [id number] DOCUMENT ID: [id number] EFRAIN PETTY MD at 0740 CC: SHAHID PENG M.D. and JOHAN AYALA MD [id number] DICTATION DATE: 07/31/18 1346 DRY CANS OPERATOR: 07/31/18 1504 ADM IN [facility] [address] [id number]
--- NOTE | 2018-08-01 07:51 | NUR ---
0700 PT RECIEVED UP IN CHAIR ALERT AND ORIENTED VSS O2 2L NC, R IJ CVL DRESSING CDI, SALINE LOCKED, MIDSTERNAL DRESSING CDI SUBSTERNAL DRESSING CDI WITH TPM WIRE COILED TO CHEST AND SABRINA DRAIN COMPRESSED WITH BLOODY DRAINAGE, PRO DRAINING CLEAR YELLOW URINE, RLE HARVEST SITE DRESSINGS CDI, DENIES PAIN AND ALL NEEDS, SEE SHIFT ASSESSMENT FOR DETAILS
--- NOTE | 2018-08-01 12:36 | NUR ---
0900 ATE BREAKFAST AND HAD AM MEDS WITHOUT DIFFICULTY 1100 REPOSITIONED IN CHAIR
--- NOTE | 2018-08-01 13:30 | TEE ---
PATIENT:PARRISH SELBY MEDICAL RECORD: [id number] LOCATION:[place] [address] AGE OF PATIENT: 68 ADMISSION DATE: 07/30/18 SEX: M REFERRING PHYSICIAN: INTERPRETING PHYSICIAN: KYRIE BRUNSON MD TRANSESOPHAGEAL ECHOCARDIOGRAM Date: JORGE LUIS CHARGE INDICATIONS: PREMEDICATIONS: PATIENT'S RESPONSE PROCEDURE DOPPLER MEASUREMENTS: LVIT LA PA RA LVOT RVOT Asc. Ao AV Gradient Peak AV Mean AV Area MV Gradient Peak MV Mean MV Area INTERPRETATION: Doppler: 2-D: COLOR FLOW DOPPLER NORMAL SALINE STUDY: MISCELLANOUS: DIAGNOSIS: PLAN: [employer] Instructor: Commodity Trader: COMMENTS: DATE OF SERVICE: 07/30/2018 INTRAOPERATIVE TRANSESOPHAGEAL ECHOCARDIOGRAM Both preop and postop shows normal LV wall motion and wall thickening. No significant valve pathology. Postoperatively, all pineda are moving well. TRANSINT:[id number] Voice Confirmation ID: [id number] DOCUMENT ID: [id number] TRANSESOPHAGEAL ECHOCARDIOGRAM REPORT [id number] PARRISH SELBY at 1330 CC: [id number] DICTATION DATE: 07/31/18 1415 OPERATOR LIGHTS: 07/31/18 1558 ADM IN [facility] [address] [place] [address]
--- NOTE | 2018-08-01 13:47 | NUR ---
SHIFT REPORT RECEIVED FROM ERIC CREWS. PT UP IN CHAIR. FAMILY AT BEDSIDE. WILL CONTINUE TO MONITOR.
--- NOTE | 2018-08-01 14:39 | NUR ---
RATES PAIN 4/10 AT THIS TIME. PERCOCET 10MG TAB GIVEN PER ORDERS. DESATED INTO UPPER 80S. PLACED ON 2L OF O2 VIA NC. PHYSICAL THERAPY WANTED HIM TO RECOVER BEFORE WALKING HIM.
--- NOTE | 2018-08-01 15:15 | NUR ---
PT AMBULATED WITH PT 500FT. BACK IN CHAIR. ON 2L OF O2. NO FURTHER NEEDS. WILL CONTINUE TO MONITOR.
--- NOTE | 2018-08-01 16:25 | NUR ---
SUBSTERNAL DRESSING CHANGED AT THIS TIME. PIVIDONE OINTMENT APPLIED.
--- NOTE | 2018-08-01 16:45 | NUR ---
BLOOD GLUCOSE 261. 6 UNITS OF HUMULIN REG GIVEN PER SLIDING SCALE. CLEAR LIQUID TRAY DELIVERED AND SET UP. VISITORS AT BEDSIDE. PT DENIES FURTHER NEEDS. WILL CONTINUE TO MONITOR.
--- NOTE | 2018-08-01 19:00 | NUR ---
Report recieved, shift assessment complete, please see flow sheets for details. Patient awake and alert, sitting up in chair. States pain 3/10 and tolerable post pain med. Denies any needs ATT. S1S2 heard, sinus tachycardia noted on CM at 106. PPP, cap refil <3 seconds. Midsternal dressing CDI, Substernal dressing CDI, left shravan drain compressed. BS active x4, patient denies BM since before surgery, on clear liquid diet and tolerating well. CHEYENNE's on, dressings to right leg CDI. Non-skid socks on. Offered to assist back to bed with PM pill pass, this was accepted. VSS, chair locked, heels bridged. Call light in reach. Will CPOC.
--- NOTE | 2018-08-01 20:00 | NUR ---
Tolerated PO meds well. Emptied shravan drain using sterile techinque, 60 ml serous fluid out. Feldman emptied, 1650 clear yellow urine out. Assisted back to bed, no physical assistance needed, gait steady and no SOB to note. Tolerated activity well. Bed low and locked, call light in reach. Provided fresh water and a jello per request. Denies any other pain/needs ATT. Will CPOC.
--- NOTE | 2018-08-01 21:16 | NUR ---
Resting, offered light out, this was provided. Denies any other needs. VSS, bed low and locked, call light in reach. Will CPOC.
--- NOTE | 2018-08-01 21:42 | NUR ---
ORAL RINSE WITH PERIDEX DONE BY SHEET METAL ROOFER
--- NOTE | 2018-08-01 23:00 | NUR ---
Reassessment complete, please see flow sheets for details. No actue changes from previous assessment to note. States would like pain pill, will provided per orders. Denies any other needs. VSS, bed low and locked, call light in reach. Will CPOC.
[2018-08-02] VITALS (24 sets, daily range): BP systolic 110–163; BP diastolic 69–88
--- NOTE | 2018-08-02 01:00 | NUR ---
Resting, vital stable, bed low and locked, call light in reach. Will CPOC.
--- NOTE | 2018-08-02 03:00 | NUR ---
Reassessment complete, please see flow sheets for details. No acute changes from previous assessment to note. Denies pain/needs ATT. Bed low and locked, call light in reach. Gave flor per request. Will CPOC.
--- NOTE | 2018-08-02 03:20 | NUR ---
BP slightly elevated, C/O some pain at incision site. Will give pain meds and monitor.
--- NOTE | 2018-08-02 03:35 | NUR ---
Pain better, asking to get OOB to toilet, passing gas and want to try to have a BM. Assisted little with getting OOB. Tolerates activity well. Back to bed with little assist. Only assistance with getting to edge of bed and with dealing with wires and tubes. No BM now. BP improvided. Will continue to monitor.
--- NOTE | 2018-08-02 05:00 | NUR ---
Full bed bath and linen change provided. Tolerated activity well. Changed Substernal dressings and right leg dressings per orders. Teds replaced. Went for PA & LAT xray, tolerated well. Up to chair, provided pudding, tolerated well. Denies any other needs. BP slightly elevated, will monitor this. All other VSS, will CPOC.
[2018-08-02 06:09] LABS: HEMATOCRIT 34.6 % (42.0-54.0); MCHC 31.8 g/dL (31.0-37.0); MCV 84.8 fL (80.0-100.0); MEAN PLATELET VOLUME 10.2 fL (7.4-10.4); RBC 4.08 10x6/uL (4.20-6.10); RDW 16.2 % (11.5-14.5); WBC 17.3 10x3/uL (4.8-10.8)
[2018-08-02 06:21] LABS: CALC OSMOLALITY 286 mosm/kg (275-300); CALCIUM 7.9 mg/dL (8.5-10.1); CARBON DIOXIDE 25.4 mmol/L (21.0-32.0); CHLORIDE - SERUM 102 mmol/L (98-107); POTASSIUM - SERUM 3.9 mmol/L (3.5-5.1); SODIUM 138 mmol/L (136-145); UREA NITROGEN 10 mg/dL (7-18); eGFR NON AFRICAN AMERICAN 79 mL/min (90-120)
[2018-08-02 06:23] LABS: GLUCOSE 319 mg/dL (74-106)
--- NOTE | 2018-08-02 07:00 | NUR ---
REPORT RECEVIED FROM THE OFF GOING RN. SEE ASSESSMENT IN THE PTS FLOW SHEET. PT LYING IN BED. PT WOKEN AND PT TRANSFERED HIM SELF OOB AND INTO HIS BEDSIDE CHAIR. PT HAS A VERY STEADY GAIT. PT DENIES PAIN/NEEDS AT THIS TIME. RA. SINUS TACHYCARDIA NOTED 109. BP STABLE. RIGHT IJ CVL DRESSING C/D/I. SL. MIDSTERNAL DRESSING C/D/I. SUBSTERNAL DRESSING C/D/I WITH A SINGLE LEFT SABRINA DRAIN COMPRESSED WITH SEROUSANGIOUS DRAINAGE NOTED. TPM WIRES COILED. FC NOTED WITH CLEAR, YELLOW URINE NOTED. RIGHT LEG HARVEST DRESSING NOTED C/D/I. CALL LIGHT IN REACH. WILL CONT POC.
--- NOTE | 2018-08-02 08:06 | NUR ---
PT DENIES N/V. ADVANCED DIET PER ORDRES. DIETARY NOTIFIED FOR A REGULAR [place] DIET.
--- NOTE | 2018-08-02 08:45 | NUR ---
DR PETTY AT THE PT'S BEDSIDE. OK TO DC FC
--- NOTE | 2018-08-02 09:15 | NUR ---
10CC OF SALINE REMOVED FROM FC. BULB COMPLETLY DEFLATED. THE FC WAS REMOVED WITH NO RESISTANCE. CATHETER TIP INTACT. ONCE FC WAS REMOVED, BRIGHT RED BLOOD NOTED. PT AMULATED TO THE BATHROOM AND A URINAL WAS PROVIED. THE PT ATTEMPTED TO VOID WITH ONLY A LARGE BLOOD CLOT NOTED IN THE URINAL. SCANT AMOUNT OF BLOOD COMING FROM THE TIP ON THE PENIS. PT ASSISTED BACK INTO HIS BEDSIDE. CHAIR. DR PETTY NOTIFIED WITH ORDERS TO CONSULT UROLOGY.
--- NOTE | 2018-08-02 10:12 | NUR ---
DR ROME CALLED AND MADE AWARE OF CONSULT FOR HEMATURIA/BLOOD CLOTS.
--- NOTE | 2018-08-02 10:27 | NUR ---
PT VOIDING AMALL AMOUNTS OF BLOODY TINGED URINE. PT DENIES PAIN.
--- NOTE | 2018-08-02 10:42 | NUR ---
Nutrition Follow Up: Pt stated that his appetite is good. RD encouraged pt to continue with good po intake as able and to make staff aware of any food preferences. Diet: ADA PO Intake: 90% meal avg Wt stable BM: 07/29/18 I<O Labs reviewed - Glucose elevated Meds noted including Humulin Rec continue current diet as tolerated. Will honor food preferences. RD following.
--- NOTE | 2018-08-02 11:23 | MORECARE ---
CASE MANAGEMENT DISCHARGE SUMMARY PATIENT: PARRISH SELBY UNIT: [id number] ADM DATE: 07/30/18 AGE: 68 : 49 SEX: M ROOM/BED: [facility] AUTHOR: ANTONINADOC PHYSICIAN: REFERRING PHYSICIAN: MARYAM PETTY MD DATE OF SERVICE: 08/02/18 Discharge Plan Patient Name: PARRISH SELBY Facility: [facility]:[place] : 1950 Planned Disposition: Home Anticipated Discharge Date: Discharge Date: Expected LOS: Initial Reviewer: [email or web address] Initial Review Date: 08/02/2018 Generated: 08/02/18 12:23 pm Comments DCP- Discharge Planning Updated by [email or web address]: Kassy Powell on 08/02/18 10:[address] Patient Name: PARRISH SELBY Admission Status: Elective Accout number: [id number] Admission Date: 07-30-2018 : 1950 Admission Diagnosis: Attending: MARYAM PETTY Current LOS: 3 Anticipated DC Date: Planned Disposition: Home Primary Insurance: MEDICARE A & B Discharge Planning Comments: CM met with patient and spouse at bedside after obtaining verbal consent. Patient states he plans on returning home after discharge with his . Patient states he will have family transport him home via private vehicle. Patient denies any discharge needs at this time. CM will continue to follow and assist as needed for discharge planning / needs. [facility] Supervisor: Kassy Powell DCPIA - Discharge Planning Initial Assessment Updated by [email or web address]: Kassy Powell on 08/02/18 11:21 am * Is the patient Alert and Oriented? Yes * How many steps to enter\exit or inside your home? * PCP JAMIE * Pharmacy [facility] * Preadmission Environment Home with Family * ADLs Independent * Equipment None * List name and contact numbers for known caregivers / representatives who currently or will assist patient after discharge: RHIANNON SELBY - SPOUSE- [phone] * Verbal permission to speak to the caregivers and representatives has been obtained from the patient. N/A * Community resources currently utilized None * Additional services required to return to the preadmission environment? No * Can the patient safely return to the preadmission environment? Yes * Has this patient been hospitalized within the prior 30 days at any hospital? No Patient Name: PARRISH SELBY Page [phone] at 1123 All edits/amendments must be made on the electronic document DICTATION DATE: 08/02/181122 ASE CERTIFIED TECHNICIAN: JOSELUIS 08/02/181122 RPT#: [id number] DC DATE: STATUS: ADM IN [facility] [address] [place] [address] END OF REPORT
--- NOTE | 2018-08-02 11:30 | NUR ---
PT VOIDED ABOUT 50ML OF PINK TINGED URINE. PT C/O SLIGHT BURING. WILL MONITOR.
--- NOTE | 2018-08-02 17:53 | NUR ---
PT HTN. DR JOVANNY OCAMPO. HE STATED TO INCREASE THE LISINOPRIL 2.5MG TO 5MG. HE STATED TO GIVE 2.5MG NOW. HE STATED TO INCREASE LOPRESSOR TO 25MG TO 50MG BID. HE STATED TO GIVE THE NIGHT TIME DOSE NOW.
--- NOTE | 2018-08-02 18:40 | NUR ---
DR ROME IN THE PTS ROOM. PT JUST URINATED CLEAR, YELLOW URINE WITH NO HEMATURIA/CLOTS. DR ROME STATED TO PAGE HIM IF ANYTHING ABNORMAL RESULTS HAPPEN AND TO SCAN HIS BLADDER NOW SINCE HE JUST URINATE.
--- NOTE | 2018-08-02 18:41 | NUR ---
PTS BLADDER SCANNED 210-250 ML NOTED. PT STATED "OH THATS NOTHING. I NORMALLY PEE ABOUT A LITER. I DONT HAVE THE URGE TO PEE BUT I HAVE BEEN HAVING NORMAL PEE STREAMS LATLEY."
--- NOTE | 2018-08-02 18:44 | NUR ---
DR ROME WAS NOTIFIED ABOUT THE BLADDER SCANNER RESULTS. DR ROME STATED THAT IF THE PT IS UNABLE TO VOID TO CALL HIM, IF HE IS VOIDING THEN THERE IS NO PROBLEM.
--- NOTE | 2018-08-02 19:00 | NUR ---
REPORT RECEIVED AND ASSESSMENT COMPLETED. SE FLOWSHEET FOR FULL DETAILS. VSS. WILL MONITOR
--- NOTE | 2018-08-02 21:41 | NUR ---
MD CONTACTED. INSTRUCTIONS TO KEEP B/P UNDER 150. NITRO TO BE USED IF B/P ELEVATES. 2100 MEDS GIVEN.VSS. WILL MONITOR
[2018-08-03] VITALS (29 sets, daily range): BP systolic 122–164; BP diastolic 66–90
--- NOTE | 2018-08-03 03:00 | NUR ---
PT UP TO RESTROOM. VSS WILL CONITNUE MONITORING
[2018-08-03 06:36] LABS: HEMATOCRIT 30.7 % (42.0-54.0); HEMOGLOBIN 9.9 g/dL (13.5-17.5); MCH 26.8 pg (26.0-34.0); MCHC 32.2 g/dL (31.0-37.0); MEAN PLATELET VOLUME 9.8 fL (7.4-10.4); RBC 3.7 10x6/uL (4.20-6.10); RDW 16.3 % (11.5-14.5)
[2018-08-03 06:41] LABS: WBC 10.7 10x3/uL (4.8-10.8)
--- NOTE | 2018-08-03 07:00 | NUR ---
REC'D CARE OF PT. A&O X3. SITTING IN CHAIR, DENIES NEEDS.
[2018-08-03 07:11] LABS: CALC OSMOLALITY 282 mosm/kg (275-300); CALCIUM 7.9 mg/dL (8.5-10.1); CARBON DIOXIDE 26.3 mmol/L (21.0-32.0); CHLORIDE - SERUM 106 mmol/L (98-107); CREATININE - SERUM 0.8 mg/dL (0.6-1.3); POTASSIUM - SERUM 3.5 mmol/L (3.5-5.1); SODIUM 140 mmol/L (136-145); UREA NITROGEN 9 mg/dL (7-18); eGFR NON AFRICAN AMERICAN > 90 mL/min (90-120)
[2018-08-03 07:13] LABS: GLUCOSE 187 mg/dL (74-106)
--- NOTE | 2018-08-03 07:46 | NUR ---
INITIAL ASSESSMENT COMPLETED.
--- NOTE | 2018-08-03 08:43 | NUR ---
FAMILY AT BEDSIDE. UPDATED BY DR. PETTY.
--- NOTE | 2018-08-03 08:43 | NUR ---
DR. PETTY AT BEDSIDE.
--- NOTE | 2018-08-03 08:50 | NUR ---
PULLS 1500 ON IS.
--- NOTE | 2018-08-03 08:53 | NUR ---
LEAVE RIGHT LEG HARVEST SITES EVAPORATIVE COOLER INSTALLER PER DR. PETTY.
--- NOTE | 2018-08-03 10:06 | NUR ---
HNT DISCUSSED WITH DR. PETTY. PO HNT MEDS GIVEN EARLIER. CALL DR. PETTY IN HE REMAINS HYPERTENSIVE.
--- NOTE | 2018-08-03 10:46 | NUR ---
REASSESSMENT COMPLETED PER FLOW SHEET. NO ACUTE CHANGES.
--- NOTE | 2018-08-03 12:00 | NUR ---
FSBS 194. 4 UNITS REGULAR INSULIN GIVEN.
--- NOTE | 2018-08-03 12:16 | NUR ---
ASKED IF HE NEEDED ANYTHING. REQUESTED H20. OBLIGED.
--- NOTE | 2018-08-03 12:46 | NUR ---
FAMILY AT BEDSIDE. UPDATED BY PT.
--- NOTE | 2018-08-03 13:40 | NUR ---
STARTED 22 GAUGE PIV AT RIGHT WRIST X1 STICK. DRAWS AND FLUSHES WELL. DC'D RIGHT SG CORDIS. APLLIED STERILE 2X2 AND COVERED WITH STERILE TEGADERM. NO S/S OF BLEEDING OR HEMATOMA.
--- NOTE | 2018-08-03 13:42 | NUR ---
GETS SELF UP TO BATHROOM. HAD SMALL FORMED BROWN STOOL AND 200 CC URINE. INDEPENDENT CARE.
--- NOTE | 2018-08-03 13:54 | NUR ---
NO S/S OF BLEEDING OR HEMATOMA AT RIGHT IJ DC'D SG CORDIS SIGHT.
--- NOTE | 2018-08-03 14:14 | NUR ---
PULLS 1500 ON IS.
--- NOTE | 2018-08-03 14:29 | NUR ---
REASSESSMENT COMPLETED PER FLOW SHEET. NO ACUTE CHANGES.
--- NOTE | 2018-08-03 14:44 | NUR ---
UP WALKING AROUND IN ROOM WITHOUT DIFFICULTY.
--- NOTE | 2018-08-03 14:45 | NUR ---
GETS SELF UP TO BATHROOM. HAS MEDIUM BROWN STOOL AND 300 CC URINE. INDEPENDENTLY.
--- NOTE | 2018-08-03 16:32 | NUR ---
FAMILY AT BEDSIDE. UPDATED.
--- NOTE | 2018-08-03 17:00 | NUR ---
DINNER TRAY SERVED. FAMILY HAD BROUGHT SOMETHING IN FOR HIM TO EAT. LEFT TRAY WITH HIM IN ROOM.
--- NOTE | 2018-08-03 18:24 | NUR ---
REPOSITIONS SELF IN BED. GETS OOB. GOES TO BATHROOM INDEPENDENTLY WITHOUT DIFFICUTLY.
--- NOTE | 2018-08-03 19:00 | NUR ---
SHIFT ASSESSMENT COMPLETE. PT IS OOB AND USING THE RESTROOM. HIS GAIT IS STEADY. PT IS NOW BACK IN THE CHAIR. A&O X4 AND COMPLAINS OF INCISIONAL PAIN, RATING A 2/10. ADMINISTERED PERCOCET-5. S1S2 AUDIBLE, NSR SHOWING ON MONITOR. RR EVEN AND UNLABORED, CLEAR LUNG SOUNDS THROUGHOUT ALL LOBES. MIDSTERNAL DRESSING CDI, SUBSTERNAL DRESSING CDI, SABRINA DRAIN COMPRESSED DRAINING SEROUS DRAINAGE. ABD IS SOFT AND NONTENDER TO TOUCH, BS ACTIVE X4. R WRIST PIV S/L. R LEG HARVEST SITES EDWARDO. RADIAL AND PEDAL PULSES PALP. COMPLETE LINEN CHANGE. PT REQUESTED TO STAY IN THE CHAIR FOR NOW. REFILLED REFRESHMENTS. NO FURTHER NEEDS AT THIS TIME. VSS. WILL CONT TO MONITOR CLOSELY.
--- NOTE | 2018-08-03 21:00 | NUR ---
FSBS 153, 4 UN REG INSULIN ADMINISTERED. PM MEDS TAKEN WITHOUT DIFFICULTY. HE DENIES ANY NEEDS AT THIS TIME. CALL LIGHT IN REACH. WILL CONT WITH POC.
--- NOTE | 2018-08-03 23:00 | NUR ---
REASSESSMENT COMPLETE. HE IS OOB, GAIT STEADY. HE DENIES ANY NEEDS AT THIS TIME. VSS. NO CHANGES IN PREVIOUS ASSESSMENT. HE IS NOW IN THE CHAIR SITTING UP AND WATCHING TV. WILL CONT TO MONITOR CLOSELY.
[2018-08-04] VITALS (11 sets, daily range): BP systolic 134–159; BP diastolic 77–92
--- NOTE | 2018-08-04 01:00 | NUR ---
PT RESTING IN CHAIR PEACEFULLY WITH NO SIGNS OF ACUTE DISTRESS NOTED. CALL LIGHT IN REACH. WILL CONT WITH POC.
--- NOTE | 2018-08-04 03:00 | NUR ---
REASSESSMENT COMPLETE. NO CHANGES IN PT CONDITION. VSS. REPOSITIONED FOR COMFORT. SEE FLOWSHEET FOR FURTHER DETAILS. WILL CONT WITH POC.
--- NOTE | 2018-08-04 05:00 | NUR ---
PT WENT TO XRAY WITH [employer]LO[employer] MARKETING COORDINATOR. GAIT STEADY. VSS. UP IN CHAIR. WILL CONT TO MONITOR.
[2018-08-04 06:07] LABS: HEMATOCRIT 34.2 % (42.0-54.0); MCHC 32.2 g/dL (31.0-37.0); MCV 83.8 fL (80.0-100.0); MEAN PLATELET VOLUME 9.7 fL (7.4-10.4); RBC 4.08 10x6/uL (4.20-6.10); RDW 16.3 % (11.5-14.5)
[2018-08-04 06:46] LABS: CALC OSMOLALITY 283 mosm/kg (275-300); CALCIUM 8.7 mg/dL (8.5-10.1); CHLORIDE - SERUM 104 mmol/L (98-107); CREATININE - SERUM 0.9 mg/dL (0.6-1.3); GLUCOSE 218 mg/dL (74-106); SODIUM 139 mmol/L (136-145); UREA NITROGEN 10 mg/dL (7-18); eGFR NON AFRICAN AMERICAN 89 mL/min (90-120)
--- NOTE | 2018-08-04 07:00 | NUR ---
REC'D CARE OF PT. A&O X3. SITTING IN CHAIR. DENIES NEEDS. DENIES PAIN. BREAKFAST TRAY SERVED.
--- NOTE | 2018-08-04 07:15 | NUR ---
HYPERTENSIVE. MORNING MEDS GIVEN.
--- NOTE | 2018-08-04 09:48 | NUR ---
DR. PETTY HERE.
--- NOTE | 2018-08-04 10:00 | NUR ---
REMAINS IN CHAIR. DENIES NEEDS.
--- NOTE | 2018-08-04 10:33 | NUR ---
REASSESSMENT COMPLETED PER FLOW SHEET. NO ACUTE CHANGES.
[2018-08-04] MEDS ORDERED: AMIODARONE HCL200 MG PO (11:15)
[2018-08-04] MEDS ORDERED: PLAVIX75 MG PO (11:15)
[2018-08-04] MEDS ORDERED: PERCOCET 5-3251 TAB PO (11:16)
--- NOTE | 2018-08-04 11:23 | NUR ---
DR. PETTY AT BEDSIDE. HE PULLED SABRINA DRAIN. ORDERS TO COVER INCISIONS X3 OF DC'D SUBSTERNAL TUBE SITES WITH STERILE GAUZE AND COVER WITH TEGADERM.
--- NOTE | 2018-08-04 11:23 | NUR ---
DR. PETTY DC'D EXTERNAL PACER WIRES.
--- NOTE | 2018-08-04 11:27 | NUR ---
FSBS 207. TREATED PER SS.
--- NOTE | 2018-08-04 11:50 | NUR ---
DRSG APPLIED TO SUBSTERNAL SITES OF DC'D CT'S/DRAINS X3, PER ORDERS.
--- NOTE | 2018-08-04 11:52 | NUR ---
DC'D PIV WITH TIP INTACT. NO BLEEDING AT DC'D BALKE DRAIN SITE OR DC'D PIV. INSTRUCTED PT. THAT HE COULD GET DRESSED. AT BEDSIDE ASSISTING.
--- NOTE | 2018-08-04 12:12 | NUR ---
EDUCATIONAL PRINT OUTS GIVEN TO PT.
--- NOTE | 2018-08-04 12:31 | NUR ---
TRANSPORTED VIA WC TO FRONT OF CVICU AND ASSISTED INTO VEHICLE.
--- NOTE | 2018-08-05 09:32 | MORECARE ---
CASE MANAGEMENT DISCHARGE SUMMARY PATIENT: PARRISH SELBY UNIT: [id number] ADM DATE: 07/30/18 AGE: 68 : [birth year] SEX: M ROOM/BED: D[facility] AUTHOR: ANTONINA,DOC PHYSICIAN: REFERRING PHYSICIAN: MARYAM PETTY MD DATE OF SERVICE: 08/05/18 Discharge Plan Patient Name: PARRISH SELBY Facility: [facility]:[place] : 1950 Planned Disposition: Home Anticipated Discharge Date: Discharge Date: 08/04/2018 Expected LOS: Initial Reviewer: [email or web address] Initial Review Date: 08/02/2018 Generated: 08/05/18 10:32 am DCP- Discharge Planning Updated by [email or web address]: Kassy Powell on 08/02/18 10:[address] Patient Name: PARRISH SELBY Admission Status: Elective Accout number: [id number] Admission Date: 07-30-2018 : 1950 Admission Diagnosis: Attending: MARYAM PETTY Current LOS: 3 Anticipated DC Date: Planned Disposition: Home Primary Insurance: MEDICARE A & B Discharge Planning Comments: CM met with patient and spouse at bedside after obtaining verbal consent. Patient states he plans on returning home after discharge with his . Patient states he will have family transport him home via private vehicle. Patient denies any discharge needs at this time. CM will continue to follow and assist as needed for discharge planning / needs. Secretary Receptionist: Kassy Powell DCPIA - Discharge Planning Initial Assessment Updated by [email or web address]: Kassy Powell on 08/02/18 11:21 am * Is the patient Alert and Oriented? Yes * How many steps to enter\exit or inside your home? * PCP JAMIE * Pharmacy [facility] * Preadmission Environment Home with Family * ADLs Independent * Equipment None * List name and contact numbers for known caregivers / representatives who currently or will assist patient after discharge: RHIANNON SELBY - SPOUSE- [phone] * Verbal permission to speak to the caregivers and representatives has been obtained from the patient. N/A * Community resources currently utilized None * Additional services required to return to the preadmission environment? No * Can the patient safely return to the preadmission environment? Yes * Has this patient been hospitalized within the prior 30 days at any hospital? No Last DP export: 08/02/18 10:23 a Patient Name: PARRISH SELBY Page [id number] at 0932 All edits/amendments must be made on the electronic document DICTATION DATE: 08/05/18931 RECRUITING CONSULTANT: JOSELUIS 08/05/18931 RPT#: [id number] DC DATE:08/04/18 STATUS: DIS IN [facility] [address] [place] [address] END OF REPORT
== END 2018-08-04 12:31 | disposition home or self-care (01) | DRG 236 ==
LOC: D.SDCHOLD 07-29 07:30 → D.CVICU 07-30 05:00 → D.SDCHOLD 07-30 07:30 → D.CVICU 07-30 09:12
PROVIDERS: ADMIT Thoracic Surgery (Cardiothoracic Vascular Surgery)
PROC: 021209W Bypass Coronary Artery, Three Arteries from Aorta with Autologous Venous Tissue, Open Approach (ICD-10-PCS; 2018-07-30)
PROC: 06BP0ZZ Excision of Right Saphenous Vein, Open Approach (ICD-10-PCS; 2018-07-30)
PROC: 5A1221Z Performance of Cardiac Output, Continuous (ICD-10-PCS; 2018-07-30)
PROC: B24BZZ4 Ultrasonography of Heart with Aorta, Transesophageal (ICD-10-PCS; 2018-07-30)
PROC: 02100Z9 Bypass Coronary Artery, One Artery from Left Internal Mammary, Open Approach (ICD-10-PCS; principal; 2018-07-30 07:30)
DX: I25.10 Atherosclerotic heart disease of native coronary artery without angina pectoris (principal); I10 Essential (primary) hypertension; K21.9 Gastro-esophageal reflux disease without esophagitis; N40.0 Benign prostatic hyperplasia without lower urinary tract symptoms; E11.65 Type 2 diabetes mellitus with hyperglycemia; E78.5 Hyperlipidemia, unspecified; R31.0 Gross hematuria

== ENCOUNTER → 2018-08-28 10:16 | Outpatient (CLI) | payer MEDICARE, OTHER ==
[2018-07-31 11:03] VITALS: BMI 32.5
[~2018-08-28 10:16] MED LIST changes: +AMIODARONE HCL200 MG PO; +PERCOCET 5-3251 TAB PO; +PLAVIX75 MG PO
[2018-08-28 10:49] LABS: HEMATOCRIT 35.7 % (42.0-54.0); HEMOGLOBIN 11.4 g/dL (13.5-17.5); MCHC 31.9 g/dL (31.0-37.0); MCV 81.3 fL (80.0-100.0); RBC 4.39 10x6/uL (4.20-6.10); WBC 8.2 10x3/uL (4.8-10.8)
[2018-08-28 11:00] LABS: ALBUMIN 3.1 g/dL (3.4-5.0); ANION GAP 16.4 mmol/L (8-16); BILIRUBIN - TOTAL 0.2 mg/dL (0.2-1.3); CALCIUM 8.1 mg/dL (8.5-10.1); CARBON DIOXIDE 24.7 mmol/L (21.0-32.0); CREATININE - SERUM 1.2 mg/dL (0.6-1.3); POTASSIUM - SERUM 4.1 mmol/L (3.5-5.1); PROTEIN - SERUM 6.5 g/dL (6.4-8.2)
== END | disposition home or self-care (01) ==
LOC: D.RAD 08:30 → D.LAB 08:45 → D.RAD 10:16
PROVIDERS: Thoracic Surgery (Cardiothoracic Vascular Surgery)
DX: D64.9 Anemia, unspecified (principal); R91.8 Other nonspecific abnormal finding of lung field

== ENCOUNTER → 2019-04-07 08:02 | Outpatient (CLI) | payer MEDICARE, OTHER ==
[2018-07-31 11:03] VITALS: BMI 32.5
== END | disposition home or self-care (01) ==
LOC: D.US 08:02
PROVIDERS: ATTEND Nurse Practitioner
DX: I25.10 Atherosclerotic heart disease of native coronary artery without angina pectoris (principal); Z86.73 Personal history of transient ischemic attack (TIA), and cerebral infarction without residual deficits

== ENCOUNTER → 2019-08-06 09:50 | Outpatient (CLI) | payer MEDICARE, OTHER ==
[2018-07-31 11:03] VITALS: BMI 32.5
== END | disposition home or self-care (01) ==
LOC: D.HCCECHO 09:50
PROVIDERS: ATTEND Internal Medicine Cardiovascular Disease
DX: I10 Essential (primary) hypertension (principal)

== ENCOUNTER 2019-10-14 11:17 | Outpatient (CLI) | payer MEDICARE, OTHER ==
[~2019-10-14] VITALS: Ht 172.7 cm; Wt 88.2 kg
--- NOTE | ~2019-10-14 | HEMODYNAMI ---
PATIENT:PARRISH SELBY MEDICAL RECORD: [id number] : [birth year] LOCATION:[facility] ADMISSION DATE: 10/14/19 Generatedon:10/14/201913:28 Patient name: PARRISH SELBY Patient #: [id number] SSN: [id number] : 1950 Date of study: 10/14/2019 Page: Of Hemodynamic Procedure Report Patient Data Patient Demographics Procedure consent was obtained First Name: PARRISH Gender: Male Last Name: BAL : 1950 Middle Initial: A Age: 69 year(s) Patient #: [id number] Race: SSN: [id number] Additional ID: [id number] Contact details [address]: [address] [place] [address] State: [place] City: [place] Zip code: [address] Past Medical History History of disease Date Diagnosis Comments Arrhythmias - Sinus Node->Sick sinus syndrome Allergies: No known allergies Admission Admission Data Admission Date: 10/14/2019 Admission Time: 11:17 Procedure Procedure Types Cath Procedure Diagnostic Procedure JORGE LUIS Procedure Description Procedure Date Procedure Date: 10/14/2019 Procedure Start Time: 12:48 Procedure Staff Name Function Francois Lutz MD Performing Physician Eduardo Thomas RN Nurse Consuelo Lucero RT Monitor Radha Rhodes Speech And Language Clinician Nela Cervantes COLLECTIONS CURATOR Additional personnel Jose Lee CRNA Additional personnel Procedure Data Cath Procedure Fluoroscopy Diagnostic fluoroscopy Total fluoroscopy Time: 0 time: 0 min min Diagnostic fluoroscopy Total fluoroscopy dose: 0 dose: 0 mGy mGy Estimated blood loss: 0 ml Procedure Complications No complications Hemodynamics Rest Heart Rate: 78 (bpm) Snapshots Pre Cath Intra NCS Post Cath Vital Signs Time Heart Resp SPO2 etCO2 NIBP (mmHg) Rhythm Pain Sedation Rate (ipm) (%) (mmHg) Status Level (bpm) 13:12:01 77 21 100 24.6 189/102(162) NSR 0 (11) 10(A) , No pain 13:16:25 72 18 99 0 164/91(138) NSR 0 (11) 10(A) , No pain 13:20:45 68 18 100 9.6 140/78(117) NSR 0 (11) 10(A) , No pain 13:24:14 67 17 100 12.6 137/81(117) NSR 0 (11) 10(A) , No pain Procedure Log Time Note 12:48:26 Informed consent obtained and on chart 12:50:11 H&P Date Dictated: 10/06/2019 Within 30 days and on chart., H&P Addendum completed by physician on day of procedure. (MUST COMPLETE FOR ALL OUTPATIENTS). 12:50:45 Patient allergic to No known allergies 12:52:15 Procedure Status JORGE LUIS. 12:52:16 Time tracking: Regular hours (M-F 7:00 - 5:00) 12:52:20 Plan of Care:Hemodynamics will remain stable., Cardiac rhythm will remain stable., Comfort level will be maintained., Respiratory function will remain adequate., Patient/ family verbilizes understanding of procedure., Procedure tolerated without complication., Recovers from procedure without complications.. 12:53:52 Consuelo Lucero RT(R) sent for patient. Start room use. 13:00:55 Jose Lee CRNA present and monitoring patient for TIVA. 13:04:04 Patient arrived from Pre/Post Procedure Room to CCL 2. Patient remains on bed/stretcher for procedure. 13:04:06 Warm blankets applied, and nicholas hugger turned on for patient comfort. 13:04:06 Correct patient and procedure confirmed by team. 13:04:51 Pre-procedure instructions explained to patient. 13:04:51 Pre-op teaching completed and patient verbalized understanding. 13:04:52 Family in patients room. 13:04:58 Patient NPO since Midnight. 13:05:00 Is the patient allergic to Iodine/contrast media? No. 13:05:01 Is patient on blood thinner?Yes 13:05:04 ACC The patient was administered the following blood thiners within the last 24 hours: ACCPlavix, Coumadin 13:05:06 Patient diabetic? Yes. 13:05:09 Previous problem with sedation/anesthesia? No ? 13:05:09 Snore? Yes 13:05:10 Sleep apnea? Yes 13:05:11 Deviated septum? No 13:05:12 Opens mouth fully? Yes 13:05:13 Sticks out tongue? Yes 13:05:14 Airway obstruction? No ? 13:05:20 Dentures? N/A PARTIALS IN 13:05:33 IV patent on arrival in right antecubital with 0.9% NaCl at [facility]. 13:05:36 Lab results completed and on chart. 13:05:37 Alarms reviewed by R. N. 13:05:38 Sharps counted by scrub and verified by R.N. 13:05:59 Radha Meagan Bill Clerk present for JORGE LUIS. 13:07:35 Rhythm: sinus rhythm 13:10:20 Vital chart was started 13:10:22 Baseline sample Acquired. 13::24 Full Disclosure recording started 13:10:27 ECG and BP/O2 sat monitors applied to patient. 13:10:31 --------ALL STOP TIME OUT------ 13:10:31 Final Timeout: patient, procedure, and site verified with staff and physician. All members of the team are in agreement. 13:10:40 Physical assessment completed. ASA score P 2 - A patient with mild systemic disease as per Francois Lutz MD. 13:10:47 2) 60-89 Mildly reduced kidney function, and other findings (as for stage 1) point to kidney disease. 13:10:49 Maximum allowable contrast dose (3.7 X eGFR X 0.75)? ml. 13:10:52 Sedation plan: TIVA Medication:Propofol 13:11:01 JORGE LUIS 13:11:03 JORGE LUIS started. 13:17:50 JORGE LUIS completed. 13:18:30 Procedure ended.(Physican Out) 13:19:54 Fluoroscopy time 00.00 minutes. 13:19:56 Fluoroscopy dose: 0 mGy 13:19:56 Flurop Dose total: 0 13:19:58 Dose Area Product 0 mGy/cm. 13:20:10 Post-procedure physical assessment completed. ASA score P 2 - A patient with mild systemic disease as per Francois Lutz MD. 13:20:13 Post procedure rhythm: sinus rhythm 13:20:33 Estimated blood loss: 0 ml 13:20:43 Post procedure instruction explained to patient.Patient verbalizes understanding. 13:20:44 Patient needs reinforcement of post procedure teaching. 13:20:50 Procedure and supply charges have been captured, reviewed, submitted and are correct. 13:20:53 Procedure Complication : No complications 13:21:06 JORGE LUIS Findings: JORGE LUIS w/ cardioversion: no atrial clot noted (proceed with cardioversion) 13:22:25 Operative report dictated upon procedure completion. 13:22:25 See physician's report for complete and final results. 13:25:34 Report given to Pre/Post Procedure Room. 13:25:37 Patient transfered to Pre/Post Procedure Room with Bed. 13:27:30 Vital chart was stopped 13:27:37 End room use (Document Last) 13:27:51 End room use (Document Last) 13:28:15 End room use (Document Last) Signature Audit [place] Stage Time Signature Unsigned Intra-Procedure 10/14/2019 Consuelo Lucero 1:27:51 PM RT(R) Intra-Procedure 10/14/2019 Eduardo Thomas 1:28:15 PM RN Intra-Procedure 10/14/2019 Francois Cutler 1:28:35 PM Christopher CHIANG Signatures Performing Physician : Signature : Francois Lutz MD Date : Time : Nurse : Eduardo Thomas RN Signature : Date : Time : Monitor : Consuelo Lucero Signature : RT Date : Time : [address] [place] [address]
[~2019-10-14 11:17] MED LIST changes: +FLOMAX0.4 MG PO; +LIPITOR40 MG PO; +XARELTO20 MG PO
[2019-10-14 11:44] VITALS: BP 152/78; Ht 172.7 cm; Wt 88.2 kg
[2019-10-14 12:02] LABS: CALC OSMOLALITY 285 mosm/kg (275-300); CALCIUM 8.8 mg/dL (8.5-10.1); CARBON DIOXIDE 26.4 mmol/L (21.0-32.0); CHLORIDE - SERUM 106 mmol/L (98-107); CREATININE - SERUM 0.9 mg/dL (0.6-1.3); GLUCOSE 158 mg/dL (74-106); POTASSIUM - SERUM 4.2 mmol/L (3.5-5.1); SODIUM 142 mmol/L (136-145); UREA NITROGEN 12 mg/dL (7-18); eGFR NON AFRICAN AMERICAN 89 mL/min (90-120)
[2019-10-14 12:19] LABS: HEMATOCRIT 44.3 % (42.0-54.0); HEMOGLOBIN 14.7 g/dL (13.5-17.5); MCH 29.3 pg (26.0-34.0); MCHC 33.2 g/dL (31.0-37.0); MCV 88.2 fL (80.0-100.0); MEAN PLATELET VOLUME 9.3 fL (7.4-10.4); NEUTROPHILS 75.6 % (40-80); PLATELET COUNT 255 10x3/uL (130-400); RBC 5.02 10x6/uL (4.20-6.10); RDW 14.8 % (11.5-14.5); WBC 8.1 10x3/uL (4.8-10.8)
--- NOTE | 2019-10-14 13:35 | NUR ---
PT RECEIVED BACK TO ROOM 5 VIA STRETCHER FROM DAIRY CONSULTANT POST JORGE LUIS. PT AWAKE AND ALERT, DENIES PAIN OR DISCOMFORT. PT PLACED ON CARDIAC MONITORS. HR NSR RATE 73, BP 152/83, RR 11, SAT 98 ON ROOM AIR. PT DENIES DIFFICULITY SWALLOWING OR THROAT PAIN. IV PATENT INFUSING VIA ORDERS. WILL OBSERVE X 1 HOUR PER ORDERS.
--- NOTE | 2019-10-14 14:00 | NUR ---
PT SITTING UP IN BED TALKING ON PHONE. VSS. PT DENIES ANY PAIN OR DIFFICULITY SWALLOWING. CALL LIGHT IN REACH.
--- NOTE | 2019-10-14 14:15 | NUR ---
SANDWICH AND DRINK SERVED. PT TOLERATING SIPS OF WATER W/O DIFFICULTY. VSS.
--- NOTE | 2019-10-14 14:36 | NUR ---
DISCHARGE INSTRUCTIONS REVIEWED W PT AND , BOTH VERBALIZED UNDERSTANSING. PT TOLERATED SANDWICH AND DRINK W/O DIFFICULITY SWALLOWING AND NO PAIN. IV REMOVED W CATH INTACT, MONITORS REMOVED. PT UP TO DRESS FOR DISCHARGE.
--- NOTE | 2019-10-14 14:45 | NUR ---
PT DISCHARGED VIA WC TO WAITING IN PRIVATE VEHICLE AT FRONT ENTRANCE. PT HAD ALL BELONGINGS AND DISCHARGE PAPERWORK.
--- NOTE | 2019-10-16 11:53 | TEE ---
PATIENT:PARRISH SELBY MEDICAL RECORD: [id number] LOCATION:[facility] AGE OF PATIENT: 69 ADMISSION DATE: 10/14/19 SEX: M REFERRING PHYSICIAN: INTERPRETING PHYSICIAN: KYRIE BRUNSON MD TRANSESOPHAGEAL ECHOCARDIOGRAM Date: 10/14/19 JORGE LUIS CHARGE Y INDICATIONS: R/O ATRIAL THROMBUS PREMEDICATIONS: PATIENT'S RESPONSE PROCEDURE DOPPLER MEASUREMENTS: LVIT LA PA RA LVOT RVOT Asc. Ao AV Gradient Peak AV Mean AV Area MV Gradient Peak MV Mean MV Area INTERPRETATION: Doppler: 2-D: COLOR FLOW DOPPLER NORMAL SALINE STUDY: MISCELLANOUS: DIAGNOSIS: PLAN: Law Enforcement Officer:3 Dr. Steele Venture Capitalist: 1 JAMMIE SHAVER COMMENTS: DATE OF SERVICE: 10/14/2019 TRANSESOPHAGEAL NOTE DESCRIPTION OF PROCEDURE: After general sedation via TIVA via anesthesia, transesophageal Omniplane probe was placed in the distal esophagus and the proximal stomach without difficulty. FINDINGS: LV internal dimensions appeared normal. LV wall motion is normal. TRANSESOPHAGEAL ECHOCARDIOGRAM REPORT [id number] PARRISH SELBY EF 25%. Aortic valve is tricuspid with good valve excursion. Trivial or no significant AI. Left atrium appears normal dimensions. Left atrial appendage is well visualized with good contractility. No evidence of thrombus. Mitral valve is well visualized with no structural abnormality. Trivial MR. Right-sided chambers are grossly normal. Trivial TR. Color flow and Doppler and both showed no evidence of ASD, VSD, or PFO. At the end of procedure, the probe was turned posteriorly and this showed no significant atherosclerotic debris in the descending aorta. TRANSINT:[id number] Voice Confirmation ID: [id number] DOCUMENT ID: [id number] at [id number] CC: [id number] DICTATION DATE: 10/14/19 1326 FLOOR COVERING PRINTER: 10/14/192005 DEP CLI 10/14/19 [id number] [place] [address]
== END 2019-10-14 14:45 | disposition home or self-care (01) ==
LOC: D.CATH 11:17
PROVIDERS: ATTEND Internal Medicine Interventional Cardiology
DX: I51.3 Intracardiac thrombosis, not elsewhere classified (principal)

== ENCOUNTER → 2019-10-16 07:56 | Outpatient (CLI) | payer MEDICARE, OTHER ==
[2019-10-14 11:44] VITALS: BMI 29.5
== END | disposition home or self-care (01) ==
LOC: D.CT 07:56
PROVIDERS: ATTEND Psychiatry & Neurology Neurology
DX: I63.319 Cerebral infarction due to thrombosis of unspecified middle cerebral artery (principal)

== ENCOUNTER → 2020-09-20 09:08 | Outpatient (CLI) | payer MEDICARE, OTHER ==
[2019-10-14 11:44] VITALS: BMI 29.5
[2020-09-20 10:27] LABS: BASOPHILS 0.6 % (0-2); EOSINOPHILS 3.8 % (0-7); HEMATOCRIT 46.8 % (42.0-54.0); HEMOGLOBIN 15.8 g/dL (13.5-17.5); IMMATURE GRANULOCYTES 0.2 % (0-5); LYMPHOCYTE ABS# 1.14 10x3/uL (1.32-3.57); LYMPHOCYTES 21.6 % (15-50); MCHC 33.8 g/dL (31.0-37.0); MEAN PLATELET VOLUME 9.4 fL (7.4-10.4); MONOCYTES 7.6 % (2-11); NEUTROPHILS 66.2 % (40-80); PLATELET COUNT 185 10x3/uL (130-400); RBC 5.26 10x6/uL (4.20-6.10); RDW 13.9 % (11.5-14.5); WBC 5.3 10x3/uL (4.8-10.8)
[2020-09-20 10:38] LABS: % SATURATION 32 % (15-55); IRON 99 ug/dl (35-150); TOTAL IRON BIND CAPACITY 308 ug/dl (260-445); UNSAT IRON BIND CAPACITY 209 ug/dl (150-375)
[2020-09-20 10:46] LABS: ALBUMIN 3.9 g/dL (3.4-5.0); ALKALINE PHOSPHATASE 79 U/L (30-120); ALT (SGPT) 42 U/L (10-68); CALC OSMOLALITY 280 mosm/kg (275-300); CALCIUM 8.8 mg/dL (8.5-10.1); CARBON DIOXIDE 26.9 mmol/L (21.0-32.0); CHLORIDE - SERUM 104 mmol/L (98-107); FERRITIN 52 ng/mL (3-244); GLUCOSE 166 mg/dL (74-106); PROTEIN - SERUM 7.2 g/dL (6.4-8.2); SODIUM 139 mmol/L (136-145); THYROID STIMULATING HORMONE 0.74 uIU/mL (0.36-3.74); UREA NITROGEN 11 mg/dL (7-18); eGFR NON AFRICAN AMERICAN 78 mL/min (90-120)
== END | disposition home or self-care (01) ==
LOC: D.LAB 09:08
PROVIDERS: ATTEND Internal Medicine Hematology & Oncology
DX: D68.59 Other primary thrombophilia (principal); I67.2 Cerebral atherosclerosis; I63.319 Cerebral infarction due to thrombosis of unspecified middle cerebral artery; Z86.73 Personal history of transient ischemic attack (TIA), and cerebral infarction without residual deficits; I63.9 Cerebral infarction, unspecified; E11.40 Type 2 diabetes mellitus with diabetic neuropathy, unspecified; R26.81 Unsteadiness on feet; N40.0 Benign prostatic hyperplasia without lower urinary tract symptoms

== ENCOUNTER → 2020-12-06 08:50 | Outpatient (CLI) | payer MEDICARE, OTHER ==
[2019-10-14 11:44] VITALS: BMI 29.5
== END | disposition home or self-care (01) ==
LOC: D.US 08:50
PROVIDERS: ATTEND Internal Medicine Cardiovascular Disease
DX: I65.23 Occlusion and stenosis of bilateral carotid arteries (principal); G45.9 Transient cerebral ischemic attack, unspecified